=== PATIENT | male | born 1960 | race Caucasian/White ===

== ENCOUNTER 2018-12-08 16:09 | Emergency (ER) | payer OTHER ==
[~2018-12-08] VITALS: Ht 180.3 cm; Wt 167.8 kg
[2018-12-08] MEDS ORDERED: QUET200 PO (17:24)
[2018-12-08] MEDS ORDERED: PERP4 PO (17:25)
[2018-12-08] MEDS ORDERED: CLOP75 PO (17:26)
[2018-12-08] MEDS ORDERED: Lasix20 MG PO (17:26)
[2018-12-08] MEDS ORDERED: Atarax10 MG PO (17:26)
[2018-12-08] MEDS ORDERED: POTCHL10ER PO (17:26)
[2018-12-08] MEDS ORDERED: Monodox100 MG PO (17:28)
== END 2018-12-08 17:36 | disposition home or self-care (01) ==
LOC: ER 16:09
DX: L02.415 Cutaneous abscess of right lower limb (principal); Z88.2 Allergy status to sulfonamides; Z86.14 Personal history of Methicillin resistant Staphylococcus aureus infection
CPT/HCPCS: 10160; 99282-25